=== PATIENT | female | born 1965 | race Caucasian/White ===

== ENCOUNTER 2023-12-20 09:32 | Emergency (ER) | payer BC, SELFPAY ==
--- NOTE | ~2023-12-20 | XR_ITS ---
EXAMINATION: XR toe 1st LT min 2V DATE: 12/20/2023 09:55 INDICATION: Left great toe injury TECHNIQUE: Dorsal plantar, lateral and 2 oblique views of the left great toe were obtained. COMPARISON: None FINDINGS: Alignment is normal. No fracture. 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 Soft tissues are unremarkable. IMPRESSION: No acute osseous abnormality. Reviewed, dictated and finalized at location [facility].
[2023-12-20 09:45] VITALS: BP 115/71; PULSE 78; RESP 16; TEMP 36.6; O2SAT 100
--- NOTE | 2023-12-20 10:03 | ED.LOWEXIN ---
HPI - Extremity Injury (Lower) General Chief Complaint: Extremity Injury, Lower Stated Complaint: Left Great Toe Injury Time Seen by Provider: 12/20/23 09:59 Source: patient and RN notes reviewed Mode of arrival: ambulatory Limitations: no limitations History of Present Illness HPI Narrative: Patient presents today with an injury to her left great toe. She tripped, hyperflexing the toe yesterday underneath the carpet. Denies any increased numbness or tingling past her normal neuropathy. Rates her pain 1/10 at rest, which increases with weight-bearing. No [id number] interventions prior to arrival. Related Data Home Medications Medication Instructions Recorded Confirmed duloxetine 60 mg capsule,delayed 60 mg PO DAILY 12/20/23 12/20/23 release Review of Systems Review of Systems: CONSTITUTIONAL: Denies body aches, fever, chills, or sweats. EYES: Denies visual changes, redness, or discharge. ENT: Denies rhinorrhea, congestion, sore throat, or otalgia. CARDIOVASCULAR: Denies chest pain, palpitations, or edema. RESPIRATORY: Denies cough or dyspnea. GASTROINTESTINAL: Denies abdominal pain, nausea, vomiting, or diarrhea. GENITOURINARY: Denies dysuria or hematuria. SKIN: Denies rash, itching, or wounds. MUSCULOSKELETAL: Denies back pain, or myalgia.+ left great toe injury NEUROLOGIC: Denies headache, numbness, tingling, or weakness. PSYCH: Denies depression or anxiety. PMFSH Comments At time of signature, I have reviewed and agree with nursing past medical, surgical, social and family history unless otherwise noted. Please see nursing chart for further information. There is no relevant family history pertinent to the presenting complaint Exam Narrative: GENERAL: Well-appearing, well-nourished, and in no acute distress. HEAD: Normocephalic, atraumatic. EYES: EOMI. No redness or drainage. Conjunctivae normal. ENT: Mucous membranes pink and moist. NECK: Normal AROM. CHEST: No respiratory distress. EXTREMITIES: Left great toe: Tenderness to the MTP. No edema, ecchymosis, erythema to the toe or foot. Distal sensation intact. Capillary refill normal. Pedal pulse normal. Full range of motion with increased pain to the MTP. SKIN: Warm, dry, no rash. Capillary refill normal. Normal skin turgor. NEURO: No focal deficits. Alert and oriented x3. Gait steady. PSYCH: Normal affect. No signs of depression or anxiety. Course Course Level of Care: Express Care Visit Vital Signs Vital signs: Vital Signs Temperature 97.9 F 12/20/23 09:45 Pulse Rate 78 12/20/23 09:45 Respiratory Rate 16 12/20/23 09:45 Blood Pressure 115/71 12/20/23 09:45 Pulse Oximetry 100 12/20/23 09:45 Temperature 97.9 F 12/20/23 09:45 Pulse Rate 78 12/20/23 09:45 Respiratory Rate 16 12/20/23 09:45 Blood Pressure 115/71 12/20/23 09:45 Pulse Oximetry 100 12/20/23 09:45 Reviewed MDM - Extremity Injury (Lower) MDM Narrative Medical decision making narrative: X-ray is negative. Recommend elevation and ice as well as anti-inflammatories to help with the discomfort. Offered postop shoe to help with immobilization. Patient declined. Anticipatory guidance given. Differential Diagnosis Differential diagnosis: Likely fracture of toe and other (Fracture, toe sprain) Imaging Data Radiologist's impression: ITS Impressions Toe X-Ray 12/20/23 09:57 IMPRESSION: No acute osseous abnormality. Critical Care Time Critical Care Time Critical Care Time: No Discharge Plan Discharge Clinical Impression: Sprain of toe, great, left Qualifiers: Encounter type: initial encounter Qualified Code(s): S93.502A - Unspecified sprain of left great toe, initial encounter Patient Disposition: Home, Self-Care Condition: Stable Instructions: P.R.I.C.E. Treatment (ED) Additional Instructions: Your x-rays negative for fracture. Elevate and ice the toe. Taking anti-inf
== END 2023-12-20 10:08 | disposition home or self-care (01) ==
PROVIDERS: Emergency Provider Nurse Practitioner
DX: S93.502A Unspecified sprain of left great toe, initial encounter (principal); W18.40XA Slipping, tripping and stumbling without falling, unspecified, initial encounter
CPT/HCPCS: 73660; 99203; G0463

== ENCOUNTER 2024-09-23 09:56 | Emergency (ER) | payer BC, SELFPAY ==
--- NOTE | ~2024-09-23 | XR_ITS ---
AP and oblique views of the right ribs and PA chest radiograph Clinical History: Pain Findings: No rib fracture is seen. Osseous alignment is anatomic. Lungs are clear, without focal cons olidation or pleural effusion. Cardiomediastinal contour is within normal limits. Soft tissues are un remarkable. Impression: No rib fracture is seen. Clear lungs. Reviewed, dictated and finalized at [facility]. Impression: No rib fracture is seen. Clear lungs.
[2024-09-23 10:14] VITALS: BP 114/69; PULSE 89; RESP 20; TEMP 36.2; O2SAT 100
--- NOTE | 2024-09-23 10:27 | ED.BACK ---
HPI - Back Pain/Injury General Chief Complaint: Back Pain/Injury Stated Complaint: R RIB PAIN Related Data Home Medications ?Medication ?Instructions ?Recorded ?Confirmed ?Last Taken ?Type duloxetine 60 mg capsule,delayed 60 mg PO DAILY 12/20/23 12/20/23 Unknown History release Allergies Allergy/AdvReac Type Severity Reaction Status Date / Time hydroxychloroquine (From Allergy Intermediate Hives Verified 09/23/24 10:14 Plaquenil) Course Vital Signs Vital signs: Vital Signs Temperature 97.2 F L 09/23/24 10:14 Pulse Rate 89 09/23/24 10:14 Respiratory Rate 20 09/23/24 10:14 Blood Pressure 114/69 09/23/24 10:14 Pulse Oximetry 100 09/23/24 10:14 Oxygen Delivery Room Air 09/23/24 10:14 Temperature 97.2 F L 09/23/24 10:14 Pulse Rate 89 09/23/24 10:14 Respiratory Rate 20 09/23/24 10:14 Blood Pressure 114/69 09/23/24 10:14 Pulse Oximetry 100 09/23/24 10:14 Oxygen Delivery Room Air 09/23/24 10:14 Discharge Plan Discharge Patient Language: Citizen Of [place] Prescriptions: No Action duloxetine 60 mg capsule,delayed release(DR/EC) 60 mg PO DAILY Follow-up/Referrals: Charan,Leti [Other]
--- NOTE | 2024-09-23 10:34 | ED_ITS ---
HPI - General Adult General Chief complaint: Back Pain/Injury Stated complaint: R RIB PAIN Time Seen by Provider: 09/23/24 10:25 Source: patient Mode of arrival: ambulatory Limitations: no limitations History of Present Illness HPI narrative: 59-year-old female presents with concern for right rib pain and spasming. She reports she has had hyper mobile ribs and has ?popped ribs out? before. Reports when she twists and lifts at the same time this tends to happen. Reports that happened on Thursday. Reports she felt the right ribs pop out of place, she has been taking ibuprofen and using ice and heat. Reports yesterday she rolled over in bed in the symptoms got worse and she has been having full spasms in that area. She took 2 doses of tizanidine and is taking ibuprofen with only mild relief. She denies any trouble breathing. She denies rash or open skin. MD complaint: Rib pain Related Data Home Medications ?Medication ?Instructions ?Recorded ?Confirmed ?Last Taken ?Type duloxetine 60 mg capsule,delayed 60 mg PO DAILY 12/20/23 12/20/23 Unknown History release Allergies Allergy/AdvReac Type Severity Reaction Status Date / Time hydroxychloroquine (From Allergy Intermediate Hives Verified 09/23/24 10:14 Plaquenil) Review of Systems Review of Systems: CONSTITUTIONAL: Denies malaise, chills, sweats, or fever. CARDIOVASCULAR: Denies palpitations, or edema. RESPIRATORY: Denies cough or dyspnea. GASTROINTESTINAL: Denies abdominal pain, nausea, vomiting, diarrhea, bloody, or mucous stools. SKIN: Denies rash or itching. MUSCULOSKELETAL: Reports right rib pain and spasming All systems reviewed & are unremarkable except as noted in HPI and below PMFSH Comments At time of signature, agree with nursing past medical, surgical, social and family history. There is no relevant family history pertinent to the presenting complaint Exam Narrative: GENERAL: Well-appearing, well-nourished, and in no acute distress. HEAD: Normocephalic, atraumatic. EYES: PERRLA, sclera clear, and EOMI. No nystagmus. ENT: Nares clear. Mucous membranes moist. NECK: Supple. CHEST: No respiratory distress. Clear to auscultation. No bony deformities, no asymmetry. Speaks in full sentences. HEART: Regular rate and rhythm. No murmur heard. Normal peripheral pulses. EXTREMITIES: Normal range of motion. No edema. Normal strength and sensation. SKIN: Warm, dry, no visible rash. NEURO: Alert and oriented x3. PSYCH: Normal mood and affect Course Course Emergency Course: Patient is aware of diagnosis, understands and agrees to treatment plan. Anticipatory guidance given. Patient agrees to follow-up as directed and is aware of reasons to seek care at the emergency department. Portions of this record may have been created with voice recognition software Level of Care: Express Care Visit Vital Signs Vital signs: Vital Signs Temperature 97.2 F L 09/23/24 10:14 Pulse Rate 89 09/23/24 10:14 Respiratory Rate 09/23/24 10:14 Blood Pressure 114/69 09/23/24 10:14 Pulse Oximetry 100 09/23/24 10:14 Oxygen Delivery Room Air 09/23/24 10:14 Temperature 97.2 F L 09/23/24 10:14 Pulse Rate 89 09/23/24 10:14 Respiratory Rate 09/23/24 10:14 Blood Pressure 114/69 09/23/24 10:14 Pulse Oximetry 100 09/23/24 10:14 Oxygen Delivery Room Air 09/23/24 10:14 Reviewed. Medical Decision Making MDM Narrative Medical decision making narrative: The patient was evaluated by myself in the [facility] care. History is obtained from patient who is an independent historian and physical exam was performed.? Available medical records were reviewed at this time. ? Exam findings show no acute concerns or changes; patient is non-toxic appearing and is in no distress. Patient is appropriate for outpatient treatment and follow-up. ? I have evaluated and discussed social determinants of health with the patient that could potentially impact subsequent diagnosis and treatment plans. ? Differential diagnosis and treatment plan were discussed with the patient. Patient agrees with discussion and after shared medical decision making agrees with plan of care. All questions were answered to the patient's satisfaction. Vital Signs Vital Signs: Vital Signs Temperature 97.2 F L 09/23/24 10:14 Pulse Rate 89 09/23/24 10:14 Respiratory Rate 09/23/24 10:14 Blood Pressure 114/69 09/23/24 10:14 Pulse Oximetry 100 09/23/24 10:14 Oxygen Delivery Room Air 09/23/24 10:14 Temperature 97.2 F L 09/23/24 10:14 Pulse Rate 89 09/23/24 10:14 Respiratory Rate 20 09/23/24 10:14 Blood Pressure 114/69 09/23/24 10:14 Pulse Oximetry 100 09/23/24 10:14 Oxygen Delivery Room Air 09/23/24 10:14 Critical Care Time Critical Care Time Critical Care Time: No Discharge Plan Discharge Clinical Impression: Rib pain on right side Patient Disposition: Home Condition: Stable Instructions: Muscle Spasm (ED) Additional Instructions: Your x-ray looks normal Please follow up with your Primary Care Doctor within 48-72 hours. Activity as tolerated. Take prednisone as directed, take muscle relaxers every 8 hours as needed for muscle spasm- do not drive or make any important decisions while on this medication for it can make you drowsy. You may apply heat or cold to the area as needed. If you experience any worsening pain, swelling, numbness, weakness please go to ER. Contact your doctor or go to the emergency department if you develop problems with bladder or bowel function, weakness or loss of feeling in one or both of your legs, or any other serious concerns. Patient Language: Faro[place] Prescriptions: New cyclobenzaprine 10 mg tablet 10 mg PO TID PRN (Reason: muscle spasm) Qty: 20 0RF prednisone 20 mg tablet 40 mg PO DAILY 5 Days Qty: 10 0RF No Action duloxetine 60 mg capsule,delayed release(DR/EC) 60 mg PO DAILY Follow-up/Referrals: Charan,Leti [Other] Stand Alone Forms: Work/School Release IP Time of Disposition: 10:47
== END 2024-09-23 11:12 | disposition home or self-care (01) ==
PROVIDERS: Emergency Provider Nurse Practitioner
DX: R07.81 Pleurodynia (principal)
CPT/HCPCS: 71101; 99213; G0463